=== PATIENT | male | born 1955 | race Caucasian/White ===

== ENCOUNTER 2016-10-17 06:22 | Emergency (ER) | payer OTHER ==
--- NOTE | 2016-10-17 19:59 | ER ---
ADMIT: 10/17/2016 RM/LOC: ER [facility] MR#: [id number] [address] [id number] SAMANTHA HULL Ang[place] [address] [place] [address] Emergency Room Report SEX: M AGE: 61 : 1955 DATE: 10/16/2016 HISTORY OF PRESENT ILLNESS: The patient is a 61-year-old male with a past medical history of hypertension, hypercholesterolemia, and schwannoma on the right arm, came to the ER with chief complaint of last 2 weeks intermittent episodes of vertigo, room turning around for just a few seconds. The patient states each episode lasted less than 10 seconds, but the last episode at 4:00 a.m. was about 45 seconds and the patient had severe nausea and vomiting during the episodes too. The patient states he has chronic tinnitus he is seeing in both ears and denies any new weaknesses or new numbness'. The patient had no problem with the balance and walking. The patient denies any head trauma or taking any new medications. The patient denies any ear discharge. PHYSICAL EXAMINATION: GENERAL: The patient was in no distress. VITAL SIGNS: Normal. The patient is afebrile. HEAD AND NECK: TMs are normal bilaterally. There is very small cerumen in the left ear canal, which was cleared out, Samantha-Hallpike test was negative. There is no nystagmus in the eyes, pupils are 3 mm and reactive to light bilaterally, cranial nerves and motor are grossly normal. Cerebellar test are normal. Except for right upper arm numbness comparing with the left side because of the schwannoma, the rest of the sensory exam is also equal and normal. Hearing exam on the left side is less than the right one just grossly. Gait is normal. EKG did not show any abnormalities, ST or T changes. Considering the patient's presentation, all the symptoms are suggesting of a peripheral cause of vertigo although the short duration of the vertigo are more in favor of the central vertigo. The patient was signed off to next shift to follow up on the results of the CT of the head, and dispo the patient accordingly. Patrick Brush MD/ justin JOB #: [id number] CC: Patrick Brush MD, Attending Physician Alvin Gao MD, Family Physician
--- NOTE | 2016-10-24 18:56 | ER ---
ADMIT: 10/17/2016 RM/LOC: ER [facility] MR#: [id number] [address] [address] SAMANTHA HULL [address] [place] [address] Emergency Room Report SEX: M AGE: 61 : 1955 DATE: 10/17/2016 ADDENDUM: The patient is seen by Dr. Brush, I refer you to his dictation and T-sheet. The patient discharged with a diagnosis of vertigo. CT was negative. Given Antivert 25 one p.o. q.6 p.r.n., off work tonight. Follow up with Dr. Gao if not improving. CONDITION ON DISCHARGE: Good. Mamadou Ellis MD/ modl JOB #: [id number] CC: Patrick Brush MD, Attending Physician Alvin Gao MD, Family Physician
== END 2016-10-17 08:18 | disposition home or self-care (01) ==
LOC: ER 06:22
DX: H81.391 Other peripheral vertigo, right ear (principal); I10 Essential (primary) hypertension; E78.5 Hyperlipidemia, unspecified; Z79.899 Other long term (current) drug therapy